=== PATIENT | female | born 1985 | race Two or more races ===

== ENCOUNTER 2025-06-27 23:47 | Emergency (ER) | payer MEDICAID, OTHER ==
[~2025-06-27] VITALS: Ht 160 cm; Wt 90.9 kg
[2025-06-27 23:49] VITALS: BP 121/102; PULSE 129; RESP 20; TEMP 97.9; O2SAT 100
--- NOTE | 2025-06-28 01:17 | ED.PDOC ---
Psychiatric HPI Comments 39 yo female presents feeling anxious after taking edible marijuana Chief Complaint: Overdose Time Seen by MD: 01:13 Mode of Arrival: Ambulatory Severity of Pain: Moderate Severity of Mental Status: Moderate Severity of Symptoms: Moderate Timing: Hours Duration: Since onset Associated signs and symptoms: Anxiety Past Medical History PAST MEDICAL HISTORY: Denies Social History Smoker: Non-Smoker Alcohol: Occasionally Drugs: Marijuana Constitutional: reports: malaise Psychiatric: reports: anxiety All Other Systems: Reviewed and Negative Physical Exam General Appearance: Mild Distress HEENT: Normal ENT Inspection, Pharynx Normal, TMs Normal Neck: Full Range of Motion, Non-Tender, Normal, Normal Inspection Respiratory: Chest Non-Tender, Lungs Clear, No Accessory Muscle Use, No Respiratory Distress, Normal Breath Sounds Cardiovascular: No Edema, No JVD, No Murmur, No Gallop, Normal Peripheral Pulses, Regular Rate/Rhythm Breast Exam: Deferred Gastrointestinal: No Organomegaly, Non Tender, No Pulsatile Mass, Normal Bowel Sounds, Soft Genitalia: Deferred Pelvic: Deferred Rectal: Deferred Extremities: No calf tenderness, Normal capillary refill, Normal inspection, Normal range of motion, Non-tender, No pedal edema Musculoskeletal : Apperance: Normal Neurologic: Alert, consulting services manager II-XII nml as Tested, No Motor Deficits, Normal Affect, Normal Mood, No Sensory Deficits Cerebellar Function: Normal Reflexes: Normal Skin: Dry, Normal Color, Warm Lymphatic: No Adenopathy Was a procedure done? Was a procedure done?: No Psych Differential Dx Psych. Differential Dx: Anxiety, Bipolar Disorder, Depression, Hopeless, Panic Disorder, Sleepless OD Differential Dx: Alcohol Abuse, Drug Overdose, Intentional X-Ray, Labs, Meds, VS Vital Signs Date Time Temp Pulse Resp B/P (MAP) Pulse Ox O2 Delivery O2 Flow Rate FiO2 06/27/25 23:49 97.9 129 20 121/102 100 97.9 Time of 1ST Reevaluation: 01:10 Reevaluation 1ST: eloped Patient Education/Counseling: Diagnosis, Treatment Family Education/Counseling: No Family Present Departure 1 Departure Time of Disposition: 01:10 Impression: Primary Impression: Marijuana abuse Disposition: 07 LEFT AWOL/ELOPED Condition: Guarded Critical Care Note Critical Care Time?: No Stability Stability form required: No Heart Score Heart Score: Heart Score Response (Comments) Value History N/A 0 EKG N/A 0 Age N/A 0 Risk Factors N/A 0 Troponin N/A 0 Total 0 JULIO CESAR GRIFFIN MD Jun 28, 2025 01:17
== END 2025-06-28 00:32 | disposition left against medical advice (07) ==
LOC: ER 23:47
DX: F12.10 Cannabis abuse, uncomplicated (principal); F10.90 Alcohol use, unspecified, uncomplicated